=== PATIENT | female | born 1950 | race American Indian/Alaskan Native ===

== ENCOUNTER 2018-04-29 06:31 | Inpatient (IN) | payer MEDICARE ==
[2018-04-29 06:41] VITALS: BMI 30.7
[2018-04-29] MEDS ORDERED: Thrombin Topical 5,000 Int Units Spray Kit ONE (07:13)
[2018-04-29] MEDS ORDERED: Bacitracin Ointment 30 GM TUBE ONE (07:13)
[2018-04-29] MEDS ORDERED: ceFAZolin IV 2 gm in Dextrose 2 GM/50 ML BAG IVPB ONE (07:13)
[2018-04-29] MEDS ORDERED: GELATIN SPONGE,ABSORB/PORCINE 1 EACH SPONGE TP ONE (07:13)
[2018-04-29] MEDS ORDERED: Propofol 10 mg/ml Inj (20 ML) ONE ×2 (07:25→08:45)
[2018-04-29] MEDS ORDERED: Lidocaine 1% 5ml Abboject IV ONE (07:26)
[2018-04-29] MEDS ORDERED: Rocuronium 10 mg/ml (5 ml) ONE (07:26)
[2018-04-29] MEDS ORDERED: Sevoflurane - Inhalation Anesthetic Liq (250 ml) ONE (07:27)
--- NOTE | 2018-04-29 07:28 | CP.PCM.CON ---
History of Present Illness - History of Present Illness History of Present Illness: 67F complains of left knee DJD failed conservative mgmt and elected for TKR. +smoker half PPD x50+ years smoking cessation advised ALL: ASA PSH: knee arthroscopy, removal of cyst from ankle Review of Systems - Review of Systems All systems: reviewed and no additional remarkable complaints except Review of Systems: no recent illness no history of bleeding/clotting disorder no history seizure disorder no stents/PVD Past Patient History - Past Medical History & Family History Past Medical History?: Yes Past Family History: Reviewed and not pertinent - Past Social History Smoking Status: Light Smoker < 10 Cigarettes Daily - PULMONARY Hx Bronchitis: Yes Meds Allergies/Adverse Reactions: Allergies Allergy/AdvReac Type Severity Reaction Status Date / Time aspirin Allergy VOMITING Verified 04/29/18 06:42 Physical Exam - Constitutional Appears: Well, No Acute Distress - Head Exam Head Exam: ATRAUMATIC - Expanded Lower Extremities Exam Left Knee exam: tenderness Ankle exam: FULL ROM Neuro vacular tendon exam: no vascular compromise - Neurological Exam Neurological exam: Alert, Oriented x3 - Psychiatric Exam Psychiatric exam: Normal Affect, Normal Mood - Skin Skin Exam: Dry, Intact, Normal Color, Warm Results - Vital Signs Recent Vital Signs: Last Vital Signs Temp 98.3 F 04/29/18 07:22 Pulse 76 04/29/18 07:22 Resp 18 04/29/18 07:22 BP 112/72 04/29/18 07:22 Pulse Ox 98 04/29/18 07:22 Assessment & Plan (1) Primary osteoarthritis of left knee Assessment and Plan: for TKR T&S NPO medical clearance on chart, reviewed Status: Acute
[2018-04-29] MEDS ORDERED: Tranexamic Acid 1,000 MG in Sodium Chloride 0.9% 100 ML IVPB SCH (07:30)
[2018-04-29] MEDS ORDERED: Ropivacaine 0.5% 30ML IV ONE (07:31)
--- NOTE | 2018-04-29 07:35 | CP.PCM.HP ---
History of Present Illness - History of Present Illness History of Present Illness: Orthopedist: Dr Castellano Chief Complaint: Left knee pain HPI: 67 years old female with Hx of Left Meniscal tear repair, developed Osteoarthritis to the left knee. She failed conventional treatment of intra- articular injections, Physical therapy and Analgesics. so she has come for an elective Left Total Knee replacement. PMH: Left menicsal tear; pneumonia; Bronchitis PSH: Left Meniscal tear, hysterectomy SH: No illegal drug use; Chews Tobacco; Smokes Cigarette 10-18/day; No alcohol; ; Director of Food program FH: Siblings with Lung Cancer Allergies: ASA Medication: Reviewed Present on Admission - Present on Admission Any Indicators Present on Admission: No History of DVT/PE: No History of Uncontrolled Diabetes: No Urinary Catheter: No Decubitus Ulcer Present: No Review of Systems - Constitutional Constitutional: absent: Anorexia, Chills, Fever, Headache - EENT Eyes: Requires Corrective Lenses. absent: Blurred Vision, Diplopia, Floaters, Photophobia Ears: absent: Decreased Hearing, Ear Discharge, Tinnitus Nose/Mouth/Throat: absent: Epistaxis, Nasal Congestion, Nasal Discharge, Sinus Pain, Sinus Pressure - Cardiovascular Cardiovascular: absent: Chest Pain, Dyspnea, Edema - Respiratory Respiratory: absent: Cough, Dyspnea, Wheezing, Stridor - Gastrointestinal Gastrointestinal: absent: Abdominal Pain, Constipation, Diarrhea, Nausea, Vomiting - Genitourinary Genitourinary: absent: Dysuria, Flank Pain, Urinary Frequency - Musculoskeletal Musculoskeletal: Arthralgias. absent: Back Pain Additional comments: Left knee pain - Integumentary Integumentary: absent: Pruritus, Rash, Skin Ulcer, Sores, Striae, Swelling - Neurological Neurological: absent: Confusion, Dizziness, Focal Weakness, Headaches, Weakness - Psychiatric Psychiatric: absent: Anxiety, Depression, Panic Attacks - Endocrine Endocrine: absent: Palpitations, Polydipsia, Polyphagia, Polyuria - Hematologic/Lymphatic Hematologic: absent: Easy Bleeding, Easy Bruising Past Patient History - Past Medical History & Family History Past Medical History?: Yes - Past Social History Smoking Status: Heavy Smoker > 10 Cigarettes Daily Chewing Tobacco Use: No Alcohol: None Drugs: Denies Home Situation {Lives}: With Family - CARDIAC Hx Cardiac Disorders: No - PULMONARY Hx Bronchitis: Yes Hx Pneumonia: Yes - NEUROLOGICAL Hx Neurological Disorder: No - HEENT Hx HEENT Problems: No - RENAL Hx Chronic Kidney Disease: No - ENDOCRINE/METABOLIC Hx Endocrine Disorders: No - HEMATOLOGICAL/ONCOLOGICAL Hx Blood Disorders: No - INTEGUMENTARY Hx Dermatological Problems: No - MUSCULOSKELETAL/RHEUMATOLOGICAL Hx Osteoarthritis: Yes - GASTROINTESTINAL Hx Gastrointestinal Disorders: No - GENITOURINARY/GYNECOLOGICAL Hx Genitourinary Disorders: No - PSYCHIATRIC Hx Emotional Abuse: No Hx Physical Abuse: No - SURGICAL HISTORY Hx Surgeries: Yes Hx Arthroscopy: Yes (left knee) Hx Hysterectomy: Yes Other/Comment: left ankle surgery - ANESTHESIA Hx Anesthesia: Yes Hx Anesthesia Reactions: No Hx Malignant Hyperthermia: No Has any member of the family had a problem w/ anesthesia?: No Meds Allergies/Adverse Reactions: Allergies Allergy/AdvReac Type Severity Reaction Status Date / Time aspirin Allergy VOMITING Verified 04/29/18 07:35 environmental Allergy ITCHING Uncoded 04/29/18 07:35 Physical Exam - Constitutional Appears: No Acute Distress - Head Exam Head Exam: ATRAUMATIC, NORMAL INSPECTION, NORMOCEPHALIC - Eye Exam Eye Exam: EOMI, Normal appearance Pupil Exam: NORMAL ACCOMODATION, PERRL - ENT Exam ENT Exam: Mucous Membranes Moist, Normal Exam, Normal External Ear Exam - Neck Exam Neck exam: Positive for: Full Rom, Normal Inspection. Negative for: Lymphadenopathy, Tenderness - Respiratory Exam Respiratory Exam: Clear to Auscultation Bilateral. absent: Rales, Rhonchi, Wheezes - Cardiovascular Exam Cardiovascular Exam: REGULAR RHYTHM, RRR, +S1, +S2. absent: Gallop, JVD - GI/Abdominal Exam GI & Abdominal Exam: Normal Bowel Sounds, Soft. absent: Mass, Organomegaly, Tenderness - Rectal Exam Rectal Exam: Deferred - Extremities Exam Extremities exam: Positive for: normal inspection - Back Exam Back exam: NORMAL INSPECTION. absent: CVA tenderness (L), CVA tenderness (R) - Neurological Exam Neurological exam: Alert, CN II-XII Intact, Oriented x3, Reflexes Normal - Psychiatric Exam Psychiatric exam: Normal Affect, Normal Mood - Skin Skin Exam: Dry, Intact, Normal Color, Warm Results - Vital Signs Recent Vital Signs: Last Vital Signs Temp 98.3 F 04/29/18 07:22 Pulse 76 04/29/18 07:28 Resp 18 04/29/18 07:22 BP 112/72 04/29/18 07:22 Pulse Ox 98 04/29/18 07:22 - Labs Result Diagrams: 04/29/18 07:27 Assessment & Plan - Assessment and Plan (Free Text) Assessment: #. Osteoarthritis of Left knee Plan: 67 years old female with Hx of Left Meniscal tear repair, developed Osteoarthritis to the left knee. She failed conventional treatment of intra- articular injections, Physical therapy and Analgesics. so she has come for an elective Left Total Knee replacement. #. Osteoarthritis of Left knee - Consult Dr Castellano - Orthopedic management - pain management - NPO - OT/PT post surgery #. DVT prophylaxis with Lovenox post surgery starting 04/30/18 #. Code Status: Full - Date & Time Date: 04/29/18 Time: 07:35
[2018-04-29 07:39] LABS: MEAN CELL VOLUME 100.9 fl (81.0-99.0); MEAN CORPUSCULAR HEMOGLOBIN 34.6 pg (27.0-31.0); MEAN CORPUSCULAR HGB CONC 34.3 g/dL (33.0-37.0); RBC 3.45 Mil/uL (3.80-5.20); RED CELL DISTRIBUTION WIDTH 13.6 % (11.5-14.5); WHITE BLOOD COUNT 3.7 K/uL (4.8-10.8)
[2018-04-29] MEDS ORDERED: Lidocaine 4% (Laryng-O-Jet) Kit MM ONE (08:09)
[2018-04-29] MEDS ORDERED: Midazolam 2 MG/2 ML VIAL ONE (08:11)
[2018-04-29] MEDS ORDERED: Succinylcholine 200 mg/10 ml Inj IV ONE (08:11)
[2018-04-29] MEDS ORDERED: Lactated Ringer's 1,000 ML IV ONE ×2 (08:35)
[2018-04-29] MEDS ORDERED: ePHEDrine 50 mg/ml Inj ONE (08:49)
--- NOTE | 2018-04-29 11:52 | PCM.SURG1 ---
Surgeon's Initial Post Op Note - Surgeon's Notes Surgeon: Nona [employer] Teacher: TUSHAR Joshua Type of Anesthesia: General Endo, Block Regional Anesthesia Administered By: DR moy Hernandez Pre-Operative Diagnosis: Primary O/A L knee- tricompartmental Operative Findings: primary tricompartmental O/A L knee. posterior capsular contracture. lateral patella contracture. synovits- anterior/posterior Post-Operative Diagnosis: as above Operation Performed: L THR. posterior capsular relase. lateral patella release. anterior and posterior synovectomy. computer navigation Specimen/Specimens Removed: cartilage/synovium/bone Estimated Blood Loss: EBL {In ML}: 85 Blood Products Given: N/A Drains Used: Wound Vac Post-Op Condition: Fair Date of Surgery/Procedure: 04/29/18 Time of Surgery/Procedure: 09:45 (time in room/naestyhesia indcution time 8:35/ end 11:40)
--- NOTE | 2018-04-29 11:58 | PCM.ANESB3 ---
Femoral Nerve Block - Femoral Nerve Block Date of Procedure: 04/29/18 Anesthesiologist: David Pre-Procedure Diagnosis: left TKR Post-Procedure Diagnosis: same Procedure Performed: Femoral Nerve Block Left - Procedure Femoral Nerve Block: The procedure was explained to the patient that it is for the post-operative pain management. Consent was obtained after a thorough discussion with the patient regarding the benefits and possible complications of local anesthetic block of the femoral nerve at the inguinal crease area. The patient was brought to the operating room and standard monitors were applied. Time-out was held with the circulating nurse to confirm the correct surgery and the appropriate block. After applying oxygen by nasal cannula and administering IV Sedation, patient was placed in supine position with fully extended lower extremities and the _left groin exposed. The femoral artery was then carefully palpated. The ultrasound transducer was then applied to this area in the transverse plane and the femoral nerve was visualized lateral to the femoral artery and underneath the fascia iliaca. After thorough identification, the inguinal crease area was prepped with Betadine solution three times and 1 % Lidocaine was injected subcutaneously for topical anesthesia. At this point, a #22 gauge Stimuplex 2-inch needle was inserted immediately lateral to the femoral artery pulse at the inguinal crease and advanced perpendicularly. The needle was inserted to the ultrasound transducer in-plane towards the femoral nerve in a [id number] direction. Needle advancement was performed carefully under direct ultrasound visualization. Nerve stimulator was used and twitch of the quadriceps muscle was obtained at current of __0.4___ MA. After negative aspiration, _10____cc of __0.5___% ___ropivicaine was injected and this was followed with cc of % ___. Under ultrasound guidance the local anesthetics were observed spreading below fascia iliaca and around the femoral nerve. The needle was removed intact and sterile dressing was applied. The patient had stable vital signs, was conscious and in no apparent distress. The patient tolerated the femoral nerve block well with stable vital signs and was prepared for subsequent surgery.
--- NOTE | 2018-04-29 11:59 | PCM.ANESB2 ---
Popliteal Nerve Block - Popliteal Nerve Block Date of Procedure: 04/29/18 Anesthesiologist: David Pre-Procedure Diagnosis: Left TKR Post-Procedure Diagnosis: same Procedure Performed: Popliteal Nerve Block Left - Procedure Popliteal Nerve Block: This procedure was explained to the patient that it is for post-operative pain management. Consent was obtained after a thorough discussion with the patient regarding the benefits and possible complications of local anesthetic block of the sciatic nerve at the popliteal level. The patient was brought to the operating room and standard monitors are applied. Time-out was held with the circulating nurse to confirm the correct surgery and the appropriate block. After applying oxygen by nasal cannula and administering IV Sedation, patient's operative leg was gently raised and supported and the groove in between the biceps femoris and vastus lateralis muscles was carefully palpated. The skin approximately 8cm above the popliteal crease was then marked. The ultrasound transducer was then applied to the posterior thigh approximately 8cm above the popliteal crease in the transverse plane and the sciatic nerve before its division was visualized lateral to the popliteal artery and in between the bicep femoris and semimembranosus/semitendinosus muscles. After identification, the lateral portion of the thigh was prepped with Betadine solution three times and Lidocaine 1% was injected subcutaneously for topical anesthesia. At this point, a # 21 gauge Stimuplex insulated 4 inch needle was inserted into pre-marked area and advanced in a perpendicular direction. The needle was inserted above the ultrasound transducer in-plane towards the sciatic nerve in a [id number] direction. Needle advancement was performed carefully under direct ultrasound visualization. Nerve stimulator was used and dorsiflexion of the _left____ foot was elicited at a current of _0.4____ MA. After repeated negative aspiration, _20____cc of __0.5___ % was injected and this was flowed with cc of % . Under ultrasound guidance the local anesthetics were observed surrounding sciatic nerve . The needle was removed intact and sterile dressing was applied. The patient tolerated the popliteal nerve block well with stable vital signs and was subsequently prepared for the surgery.
[2018-04-29] MEDS: HYDROmorphone 0.5 mg/0.5 ml ISec IVP PRN ×3 (12:03→12:55)
--- NOTE | 2018-04-29 13:47 | RAD ---
Date of service: 04/29/2018 PROCEDURE: Left Knee Radiographs. HISTORY: Post TKA are. COMPARISON: None. FINDINGS: BONES: Expected postoperative findings related to left TKA. JOINTS: Normal. No osteoarthritis. JOINT EFFUSION: None. OTHER FINDINGS: None. IMPRESSION: Satisfactory postoperative status.
[2018-04-29] MEDS: ceFAZolin IV 2 gm in Dextrose 2 GM/50 ML BAG IVPB SCH (17:42)
[2018-04-29] MEDS: Sodium Chloride 0.9% 1,000 ML IV SCH ×2 (17:46→23:30)
[2018-04-29] MEDS: oxyCODONE 10 mg Immediate Release Tab PO PRN (19:45)
--- NOTE | 2018-04-29 21:16 | OP ---
PROCEDURE DATE: 04/29/2018 PREOPERATIVE DIAGNOSIS: Tricompartmental osteoarthritis of the left knee. POSTOPERATIVE DIAGNOSES: 1. Tricompartmental osteoarthritis of the left knee. 2. Anterior and posterior synovitis. 3. Posterior capsular contracture. 4. Lateral patellar retinacular contracture. OPERATIVE PROCEDURES: 1. Left total knee replacement arthroplasty. 2. Anterior and posterior synovectomy. 3. Posterior capsular release. 4. Lateral patellar retinacular release. 5. Computer navigation. 6. Application of wound VAC. SURGEON: Zheng Castellano MD MECHANIC FIELD SERVICE: Mounika Gibson, certified registered nursing community relations assistant. SECOND IT ADMIN: Prabhjot Blackwood PA-C. DRAINS: CRIS wound VAC. COMPLICATIONS: No complications. ESTIMATED BLOOD LOSS: Approximately 85 mL. ANESTHESIA: Regional and spinal anesthesia. ANESTHESIOLOGIST: Lee Hernandez MD OPERATIVE PROCEDURE: Pros, cons, risks, and benefits of total knee replacement arthroplasty were discussed with the patient. The possibility of mechanical failure, infection, thromboembolic disease, secondary or tertiary surgery were discussed. Stiffness, possible nerve injury, possible leg length inequality were all discussed. The patient understands the discomfort and wished the surgery to be accomplished. After the satisfactory induction of general and regional anesthesia by Dr. Lee Hernandez, after having identified the side, site, and procedure, and critical pause/time-out, after the satisfactory induction of the anesthetic, the patient identified as Genoveva Hightower, in the supine position with all bony prominences well padded, the left lower extremity was prepped and free-draped in the usual fashion for lower extremity surgery. The tourniquet had been applied, but was not yet inflated. After exsanguinating the limb using a 6-inch Esmarch bandage, the tourniquet which had been applied was inflated to 350 mmHg. Approximately, a 6.5-inch straight midline approach was made to the knee. The skin incision was carried down through the skin and subcutaneous tissue. Hemostasis was controlled with electrocautery. Dissection was carried down to the level of the prepatellar bursa. Medial arthrotomy was accomplished. Patella was everted. A portion of the patellar ligament was elevated. Dissection was carried around posteromedially to the direct head of the semimembranosus tendon. Medial and lateral meniscectomies were accomplished. Anterior and posterior cruciate ligaments were excised. The tibia was dislocated anteriorly. The initial osteotomy of the arthroplasty was accomplished on the tibial side. Computer navigation commenced at this point using accelerometer technique. The anterior tibial strut was affixed to the anterior aspect of tibia. A sensor was placed. An accelerometer was placed. Varus-valgus was set to 0 degrees, posterior slope to 3.5 degrees at a point approximately 10 mm below the more prominent condyle. Tibial osteotomy was accomplished. A portion of the iliotibial band was released. A lateral patellar retinacular release was accomplished as well. The patella was everted. The knee having been flexed. The tibia was placed below the femur border. Notch osteophytes and border osteophytes were debrided. The pin was placed above the intercondylar notch. The distal cutting guide was affixed to the distal femur. The registration was accomplished with the sensor and the accelerometer intact. The hip center was found. Varus-valgus was set to 0 degrees, posterior slope to approximately 0.5 degrees. This having been accomplished, the 4-in-1 block, the distal cut was set at 9 mm, and the distal cut was accomplished with computer navigation in the above fashion. This having been accomplished, anterior and posterior cruciate ligaments having been excised, the laminar rustic terrazzo setter was placed. An anterior and posterior synovectomy was accomplished, the laminar rustic terrazzo setter was placed and the posterior capsule was released. Lateral patella was released from inside out using electrocautery. Posterior capsule was released again using electrocautery as well taking great care to avoid injury to the popliteal vessel. This having been accomplished, 4-in-1 block was placed, size 1.5. Anterior and posterior osteotomies were accomplished as well as the chamfer cuts. Posterior capsule was released using the laminar rustic terrazzo setter mark. The tibia was dislocated anteriorly. Proximal tibia was prepared. Guidance to rotation of the lateral aspect of the tibial condyle and malleolar axis, medial third of the tibial tuberosity. The wound was thoroughly irrigated. A #2 tibial component was applied, 14 mm polyethylene, the 1.5 femoral component, reaming was accomplished. Attention was now turned to the patella. Patellar girth was approximately 28 mm. Freehand patellar osteotomy was accomplished. #1 patella was reamed. The patellar balance was found to be excellent. Flexion/extension balance was found to be excellent as well. The router for the trochlear cut was accomplished. A router was employed. Trialing was accomplished using a 1.5 femoral component, two tibial trays, 14 mm polyethylene, #1 patella. Flexion/extension balance was excellent. There was no evidence of anterior drawer. Stability was excellent. The wound was thoroughly irrigated. At this point in time, the patella was prepared. The tibia and the femur, a 1.5 femur was employed and cemented. The #2 tibial component was cemented. 14 mm polyethylene was affixed. #1 patella was cemented. The wound was thoroughly irrigated. The tourniquet was deflated. Hemostasis controlled with Aquamantys. The wound was thoroughly irrigated. Closures in layers, #2 FiberWire, followed by 0 Vicryl, 2-0 Vicryl, and sheldon for skin. A PICA wound VAC was applied. Josfe Foster compression dressing and knee immobilizers were applied. The operative goal could not have been completed without the assistance of Mounika Gibson, certified registered nursing community relations assistant and second office services assistant, Prabhjot Blackwood PA-C. Zheng Castellano MD
[2018-04-30] MEDS: ceFAZolin IV 2 gm in Dextrose 2 GM/50 ML BAG IVPB SCH (00:25)
[2018-04-30] MEDS: oxyCODONE 10 mg Immediate Release Tab PO PRN ×2 (02:38→20:37)
[2018-04-30 06:34] LABS: HEMOGLOBIN 10.6 g/dL (12.0-16.0); MEAN CELL VOLUME 101.1 fl (81.0-99.0); MEAN CORPUSCULAR HEMOGLOBIN 34.5 pg (27.0-31.0); MEAN CORPUSCULAR HGB CONC 34.1 g/dL (33.0-37.0); RBC 3.08 Mil/uL (3.80-5.20); RED CELL DISTRIBUTION WIDTH 14.1 % (11.5-14.5); WHITE BLOOD COUNT 5.1 K/uL (4.8-10.8)
[2018-04-30 06:42] LABS: BLOOD UREA NITROGEN 5 mg/dl (7-17); CALCIUM 7.8 mg/dL (8.4-10.2); GFR AFRICAN-AMERICAN > 60; GFR NON-AFRICAN AMERICAN > 60
[2018-04-30] MEDS: Enoxaparin 40 mg Syringe SC SCH ×2 (08:00→13:00)
--- NOTE | 2018-04-30 08:34 | CP.PCM.PN ---
Subjective - Date & Time of Evaluation Date of Evaluation: 04/30/18 Time of Evaluation: 07:45 - Subjective Subjective: Patient seen and examined at bedside comfortable. Pain has progressed since 1AM and is 9/10 currently despite pain meds. She also complains of nausea. No acute events overnight. Objective - Vital Signs/Intake and Output Vital Signs (last 24 hours): Temp Pulse Resp BP Pulse Ox 98.4 F 72 20 111/68 94 L 04/30/18 08:30 04/30/18 08:30 04/30/18 08:30 04/30/18 08:30 04/30/18 08:30 - Medications Medications: Current Medications Acetaminophen (Tylenol 325mg Tab) 650 mg PO Q6H [facility] Last Admin: 04/30/18 08:00 Dose: 650 mg Docusate Sodium (Colace) 100 mg PO BID [facility] Last Admin: 04/30/18 08:09 Dose: Not Given Enoxaparin Sodium (Lovenox) 40 mg SC DAILY [facility] PRN Reason: Protocol Hydromorphone HCl (Dilaudid) 0.5 mg IVP Q4 PRN PRN Reason: Pain, severe (8-10) Last Admin: 04/30/18 07:51 Dose: 0.5 mg Sodium Chloride (Sodium Chloride 0.9%) 1,000 mls @ 80 mls/hr IV .[id number] [facility] Stop: 04/30/18 11:59 Last Admin: 04/29/18 23:30 Dose: Not Given Nicotine (Nicoderm Cq) 1 patch TD DAILY [facility] Last Admin: 04/30/18 08:01 Dose: 1 patch Ondansetron HCl (Zofran Inj) 4 mg IVP Q6 PRN PRN Reason: Nausea/Vomiting Last Admin: 04/30/18 03:37 Dose: 4 mg Oxycodone HCl (Oxycodone Immediate Release Tab) 10 mg PO Q6 PRN PRN Reason: Pain, moderate (4-7) Last Admin: 04/30/18 02:38 Dose: 10 mg - Labs Labs: 04/30/18 05:40 04/30/18 05:40 - Extremities Exam Additional comments: L knee: Knee immobilizer intact, Dressings CDI, CRIS intact moderate diffuse tenderness sensation intact SP/DP/TN motor intact EHL/FHL/TA/G pedal pulses intact comps soft NT Assessment and Plan (1) Primary osteoarthritis of left knee Assessment & Plan: POD#1 s/p L TKA -pain control, possible repeat nerve block vs medication alterations. Discussed w/ anesthesia, will perform block. -complete postop abx doses -DVT ppx -PT/OT WBAT -knee imm and CPM as per order -discharge planning -above d/w Dr. Castellano in agreement Status: Acute
--- NOTE | 2018-04-30 12:13 | CP.PCM.PN ---
Subjective - Date & Time of Evaluation Date of Evaluation: 04/30/18 Time of Evaluation: 11:00 - Subjective Subjective: No fever Pain controlled at present denies CP no SOB no abd pain Objective - Vital Signs/Intake and Output Vital Signs (last 24 hours): Temp Pulse Resp BP Pulse Ox 98.4 F 72 20 111/68 94 L 04/30/18 08:30 04/30/18 08:30 04/30/18 08:30 04/30/18 08:30 04/30/18 08:30 - Medications Medications: Current Medications Acetaminophen (Tylenol 325mg Tab) 650 mg PO Q6H [facility] Last Admin: 04/30/18 08:00 Dose: 650 mg Docusate Sodium (Colace) 100 mg PO BID [facility] Last Admin: 04/30/18 08:09 Dose: Not Given Enoxaparin Sodium (Lovenox) 40 mg SC DAILY [facility] PRN Reason: Protocol Ferrous Sulfate (Feosol) 325 mg PO BID [facility] Hydromorphone HCl (Dilaudid) 0.5 mg IVP Q4 PRN PRN Reason: Pain, severe (8-10) Last Admin: 04/30/18 07:51 Dose: 0.5 mg Nicotine (Nicoderm Cq) 1 patch TD DAILY [facility] Last Admin: 04/30/18 08:01 Dose: 1 patch Ondansetron HCl (Zofran Inj) 4 mg IVP Q6 PRN PRN Reason: Nausea/Vomiting Last Admin: 04/30/18 03:37 Dose: 4 mg Oxycodone HCl (Oxycodone Immediate Release Tab) 10 mg PO Q6 PRN PRN Reason: Pain, moderate (4-7) Last Admin: 04/30/18 02:38 Dose: 10 mg - Labs Labs: 04/30/18 05:40 04/30/18 05:40 - Constitutional Appears: No Acute Distress - Head Exam Head Exam: ATRAUMATIC, NORMAL INSPECTION, NORMOCEPHALIC - Eye Exam Eye Exam: EOMI, Normal appearance, PERRL Pupil Exam: NORMAL ACCOMODATION - ENT Exam ENT Exam: Mucous Membranes Moist, Normal External Ear Exam - Neck Exam Neck Exam: Full ROM. absent: Meningismus - Respiratory Exam Respiratory Exam: NORMAL BREATHING PATTERN. absent: Respiratory Distress - Cardiovascular Exam Cardiovascular Exam: REGULAR RHYTHM, +S1, +S2 - GI/Abdominal Exam GI & Abdominal Exam: Soft, Normal Bowel Sounds. absent: Tenderness - Extremities Exam Extremities Exam: Normal Capillary Refill. absent: Calf Tenderness Additional comments: left ext with SALINAS bandage - Back Exam Back Exam: Full ROM. absent: CVA tenderness (L), CVA tenderness (R) - Neurological Exam Neurological Exam: Alert, Awake, CN II-XII Intact, Oriented x3 - Psychiatric Exam Psychiatric exam: Normal Affect, Normal Mood - Skin Skin Exam: Dry, Normal Color, Warm Assessment and Plan - Assessment and Plan (Free Text) Assessment: 67 years old female with Hx of Left Meniscal tear repair, developed Osteoarthritis to the left knee. She failed conventional treatment of intra- articular injections, Physical therapy and Analgesics. so she came for an elective Left Total Knee replacement. 1. Primary Osteoarthritis of Left knee s/p Left TKR - Consulted Dr Castellano- TKR done - pain management- pain now better controlled- Anesthesia team following pt - OT/PT consulted - DVT proph #. DVT prophylaxis with Lovenox #. Code Status: Full, Surrogate Decision maker - sister Kaylan
[2018-05-01 00:36] VITALS: O2SAT 95
[2018-05-01 06:36] LABS: HEMOGLOBIN 10.8 g/dL (12.0-16.0); MEAN CELL VOLUME 101.6 fl (81.0-99.0); MEAN CORPUSCULAR HEMOGLOBIN 34.3 pg (27.0-31.0); MEAN CORPUSCULAR HGB CONC 33.7 g/dL (33.0-37.0); RBC 3.16 Mil/uL (3.80-5.20); RED CELL DISTRIBUTION WIDTH 13.6 % (11.5-14.5); WHITE BLOOD COUNT 6.2 K/uL (4.8-10.8)
[2018-05-01 07:30] LABS: BLOOD UREA NITROGEN 4 mg/dl (7-17); CALCIUM 8.3 mg/dL (8.4-10.2); GFR AFRICAN-AMERICAN > 60; GFR NON-AFRICAN AMERICAN > 60
--- NOTE | 2018-05-01 07:52 | CP.PCM.PN ---
Subjective - Date & Time of Evaluation Date of Evaluation: 05/01/18 Time of Evaluation: 07:30 - Subjective Subjective: Patient seen and examined OOB to chair comfortable. Pain is controlled with oral medication. Mild nausea, improved from yesterday. No new complaints. Objective - Vital Signs/Intake and Output Vital Signs (last 24 hours): Temp Pulse Resp BP Pulse Ox 98.6 F 83 19 118/72 95 05/01/18 00:00 05/01/18 00:00 05/01/18 00:00 05/01/18 00:00 05/01/18 00:00 - Medications Medications: Current Medications Acetaminophen (Tylenol 325mg Tab) 650 mg PO Q6H PRN PRN Reason: Pain, Mild (1-3) Docusate Sodium (Colace) 100 mg PO BID [facility] Last Admin: 04/30/18 16:24 Dose: 100 mg Enoxaparin Sodium (Lovenox) 40 mg SC DAILY [facility] PRN Reason: Protocol Last Admin: 04/30/18 13:00 Dose: 40 mg Ferrous Sulfate (Feosol) 325 mg PO BID [facility] Last Admin: 04/30/18 16:45 Dose: 325 mg Hydromorphone HCl (Dilaudid) 0.5 mg IVP Q4 PRN PRN Reason: Pain, severe (8-10) Last Admin: 05/01/18 07:39 Dose: 0.5 mg Nicotine (Nicoderm Cq) 1 patch TD DAILY [facility] Last Admin: 04/30/18 08:01 Dose: 1 patch Ondansetron HCl (Zofran Inj) 4 mg IVP Q6 PRN PRN Reason: Nausea/Vomiting Last Admin: 05/01/18 07:43 Dose: 4 mg Oxycodone HCl (Oxycodone Immediate Release Tab) 10 mg PO Q6 PRN PRN Reason: Pain, moderate (4-7) Last Admin: 04/30/18 20:37 Dose: 10 mg - Labs Labs: 05/01/18 05:25 05/01/18 05:25 - Extremities Exam Additional comments: L knee: Knee immobilizer intact, Dressings CDI, CRIS intact wound CDI with staple, no drainage moderate diffuse tenderness sensation intact SP/DP/TN motor intact EHL/FHL/TA/G pedal pulses intact comps soft NT Assessment and Plan (1) Primary osteoarthritis of left knee Assessment & Plan: POD#2 s/p L TKA -CRIS dressings changed today -pain controlled -DVT ppx -PT/OT WBAT -knee imm and CPM as per order -orthopedically stable to d/c to rehab today -f/u in office in 7-10 days -above d/w Dr. Castellano in agreement Status: Acute
[2018-05-01] MEDS: Enoxaparin 40 mg Syringe SC SCH (10:00)
--- NOTE | 2018-05-01 11:01 | CP.PCM.DIS ---
Provider - Provider Date of Admission: 04/29/18 07:40 Attending physician: Meek Sheppard Primary care physician: Zheng Castellano III, MD Consults: Ortho: DR Castellano Time Spent in preparation of Discharge (in minutes): 30 Diagnosis - Discharge Diagnosis (1) Primary osteoarthritis of left knee Status: Acute (2) S/P TKR (total knee replacement) Status: Acute (3) Postoperative anemia Status: Acute Hospital Course - Lab Results Lab Results: Most Recent Lab Values WBC 6.2 K/uL (4.8-10.8) 05/01/18 05:25 RBC 3.16 Mil/uL (3.80-5.20) L 05/01/18 05:25 Hgb 10.8 g/dL (12.0-16.0) L 05/01/18 05:25 Hct 32.1 % (34.0-47.0) L 05/01/18 05:25 MCV 101.6 fl (81.0-99.0) H 05/01/18 05:25 MCH 34.3 pg (27.0-31.0) H 05/01/18 05:25 MCHC 33.7 g/dL (33.0-37.0) 05/01/18 05:25 RDW 13.6 % (11.5-14.5) 05/01/18 05:25 Plt Count 165 K/uL (130-400) 05/01/18 05:25 Sodium 139 mmol/l (132-148) 05/01/18 05:25 Potassium 3.6 MMOL/L (3.6-5.0) 05/01/18 05:25 Chloride 105 mmol/L (98-107) 05/01/18 05:25 Carbon Dioxide 23 mmol/L (22-30) 05/01/18 05:25 Anion Gap 15 (10-20) 05/01/18 05:25 BUN 4 mg/dl (7-17) L 05/01/18 05:25 Creatinine 0.5 mg/dl (0.7-1.2) L 05/01/18 05:25 Est GFR ( Amer) > 60 05/01/18 05:25 Est GFR (Non-Af Amer) > 60 05/01/18 05:25 Random Glucose 105 mg/dL (65-105) 05/01/18 05:25 Calcium 8.3 mg/dL (8.4-10.2) L 05/01/18 05:25 Blood Type A POSITIVE 04/29/18 07:27 Blood Type Confirm A POSITIVE 04/29/18 08:31 Antibody Screen Negative 04/29/18 07:27 Crossmatch See Detail 04/29/18 07:27 BBK History Checked No verified bt 04/29/18 07:27 - Hospital Course Hospital Course: 67 years old female with Hx of Left Meniscal tear repair, developed Osteoarthritis to the left knee. She failed conventional treatment of intra- articular injections, Physical therapy and Analgesics. so she came for an elective Left Total Knee replacement. 1. Primary Osteoarthritis of Left knee s/p Left TKR - Consulted Dr Castellano- TKR done - pain management , pain controlled - OT/PT consulted mary carmen BARRAGAN - DVT proph with Lovenox - pt doing very well post op 2. Post op Anemia , acute mild anemia started Ferrous #. DVT prophylaxis with Lovenox Discharge Exam - Head Exam Head Exam: ATRAUMATIC, NORMAL INSPECTION, NORMOCEPHALIC - Eye Exam Eye Exam: EOMI, Normal appearance, PERRL Pupil Exam: NORMAL ACCOMODATION - ENT Exam ENT Exam: Mucous Membranes Moist, Normal External Ear Exam - Neck Exam Neck exam: Full Rom - Respiratory Exam Respiratory Exam: NORMAL BREATHING PATTERN. absent: Respiratory Distress - Cardiovascular Exam Cardiovascular Exam: REGULAR RHYTHM, +S1, +S2 - GI/Abdominal Exam GI & Abdominal Exam: Normal Bowel Sounds, Soft. absent: Tenderness - Extremities Exam Extremities exam: normal capillary refill, pedal pulses present Additional comments: no cald tenderness left knee with dressing - Back Exam Back exam: FULL ROM. absent: CVA tenderness (L), CVA tenderness (R) - Neurological Exam Neurological exam: Alert, CN II-XII Intact, Oriented x3, Reflexes Normal - Psychiatric Exam Psychiatric exam: Normal Affect, Normal Mood - Skin Skin Exam: Dry, Normal Color, Warm Discharge Plan - Follow Up Plan Condition: GOOD Disposition: TRANSF TO SNF Instructions: Total Knee Replacement (DC) Additional Instructions: d/c to [facility] appt with Dr Castellano in 1 wk ff up with PMD after d/c from [facility] cont CPM Referrals: Zheng Castellano III, MD [Primary Care Provider] -
[2018-05-01] MEDS: oxyCODONE 10 mg Immediate Release Tab PO PRN ×2 (11:15→16:54)
[2018-05-01] MEDS ORDERED: Bisacodyl 5mg EC Tab PO ONE (11:16)
[2018-05-01 16:44] VITALS: BP 130/76; PULSE 83; RESP 18; TEMP 98.9
== END 2018-05-01 19:50 | DRG 470 ==
LOC: H.OPSURG 06:31 → H.MEDSURG1 07:40
PROVIDERS: ADMIT Internal Medicine; ATTEND Internal Medicine
PROC: XR2H021 Monitoring of Left Knee Joint using Intraoperative Knee Replacement Sensor, Open Approach, New Technology Group 1 (ICD-10-PCS; 2018-04-29)
PROC: 8E0YXBZ Computer Assisted Procedure of Lower Extremity (ICD-10-PCS; 2018-04-29)
PROC: 3E0T3BZ Introduction of Anesthetic Agent into Peripheral Nerves and Plexi, Percutaneous Approach (ICD-10-PCS; 2018-04-29)
PROC: 3E0T3BZ Introduction of Anesthetic Agent into Peripheral Nerves and Plexi, Percutaneous Approach (ICD-10-PCS; 2018-04-29)
PROC: 0SRD0J9 Replacement of Left Knee Joint with Synthetic Substitute, Cemented, Open Approach (ICD-10-PCS; principal; 2018-04-29 09:15)
PROC: 0SBD0ZZ Excision of Left Knee Joint, Open Approach (ICD-10-PCS; 2018-04-29 09:15)
PROC: 0SND0ZZ Release Left Knee Joint, Open Approach (ICD-10-PCS; 2018-04-29 09:15)
DX: M17.12 Unilateral primary osteoarthritis, left knee (principal); D62 Acute posthemorrhagic anemia; M65.9 Synovitis and tenosynovitis, unspecified; M24.562 Contracture, left knee; F17.210 Nicotine dependence, cigarettes, uncomplicated; Z88.6 Allergy status to analgesic agent